=== PATIENT | female | born 1980 | race Caucasian/White ===

== ENCOUNTER → 2022-12-25 | Outpatient (RCR) | payer OTHER | END | disposition home or self-care (01) | LOC: WSOT → WSOH 11-28 00:17 → WSOT 12-07 09:15 | DX: G56.01 Carpal tunnel syndrome, right upper limb (principal); Y99.0 Civilian activity done for income or pay ==

== ENCOUNTER 2022-12-28 09:00 | Outpatient (RCR) | payer OTHER | END 2023-01-25 | disposition home or self-care (01) | LOC: WSOH → WSOT 09:15 | DX: G56.01 Carpal tunnel syndrome, right upper limb (principal); M25.531 Pain in right wrist; R20.2 Paresthesia of skin; M46.1 Sacroiliitis, not elsewhere classified; Y99.0 Civilian activity done for income or pay ==